=== PATIENT | female | born 1975 | race Caucasian/White ===

== ENCOUNTER 2021-02-09 10:00 | Outpatient (RCR) | payer BC, SELFPAY ==
[2017-08-24 17:27] VITALS: BMI 55.5
== END 2021-04-12 23:59 ==
LOC: IMMUN 10:00
PROVIDERS: Referring Provider Family Medicine; Visit Provider Family Medicine
DX: Z23 Encounter for immunization (principal)
CPT/HCPCS: 0001A; 0002A; 91300

== ENCOUNTER 2024-03-19 09:00 | Outpatient (RCR) | payer BC, SELFPAY ==
[2024-03-05 09:13] VITALS: BP 132/81; PULSE 73; RESP 18; TEMP 36.6
--- NOTE | 2024-03-05 12:11 | PCM.WC.HP ---
History of Present Illness Date of Service: 03/05/24 Chief Complaint: Follow-up for dehisced panniculectomy History of Wound: 49-year-old pleasant white female who recently has lost 140 pounds had a tummy tuck or panniculectomy done. She had the surgery done least over a month or 2 ago and she is well-healed except for at the very bottom she noted on February 03 the skin she did see her surgeon he said leave it alone it would come together on its own. It has not and she is just worried that it is going to get bigger. She does have another follow-up appointment with her general surgeon and march. [facility] Home Medications levothyroxine 125 mcg tablet 125 mcg PO DAILY 06/30/16 [History Last Taken 03/05/24] prenat.vits,drew,rav-rrjv-kvapb ( Vitamin tablet) 1 ea PO DAILY 06/30/16 [History Last Taken 08/23/17] Ibuprofen [Motrin] 800 mg PO TID PRN PRN Pain #60 tabs 08/28/17 [Rx Last Taken Unknown] oxycodone-acetaminophen 5 mg-325 mg tablet 1 - 2 tab PO Q6H PRN PRN Pain #40 tabs 08/28/17 [Rx Last Taken Unknown] acetaminophen 325 mg capsule (Tylenol) 325 mg PO ONCE PRN pain (scale score 1-3) 11/02/22 [History Last Taken Unknown] guaifenesin 600 mg tablet, extended release 12 hr (Mucinex) 600 mg PO BID 11/02/22 [History Last Taken Unknown] tirzepatide 5 mg/0.5 mL subcutaneous pen injector (Mounjaro) 5 mg subcut QWEEK 11/02/22 [History Last Taken Unknown] calcium phosphate,dibasic 77 mg-vitamin D3 400 unit tablet tab PO 03/05/24 [History Last Taken Unknown] iron polysacch cmplx-vit C-B cmplx 100 mg iron-250 mg/5 mL oral liquid (Protect Iron Liquid) 2 ml PO 03/05/24 [History Last Taken Unknown] Allergy/AdvReac Type Severity Reaction Status Date / Time No Known Allergies Allergy Verified 11/02/22 09:52 Social History Smoking Status: Never smoker ROS Constitutional Constitutional: Reports systems reviewed and no addt'l complaints, except as documented Eyes Eyes: Reports systems reviewed and no addt'l complaints, except as documented ENT HEENT: Reports systems reviewed and no addt'l complaints, except as documented Cardiovascular Cardiovascular: Reports systems reviewed and no addt'l complaints, except as documented Respiratory/Chest Respiratory/Chest: Reports systems reviewed and no addt'l complaints, except as documented Gastrointestinal Gastrointestinal: Reports systems reviewed and no addt'l complaints, except as documented Genitourinary Genitourinary: Reports systems reviewed and no addt'l complaints, except as documented Musculoskeletal Musculoskeletal: Reports systems reviewed and no addt'l complaints, except as documented Integumentary Integumentary: Reports wounds and other Details: Dehisced abdominoplasty or a panniculectomy right at the mons pubis in the center Neurologic Neurologic: Reports systems reviewed and no addt'l complaints, except as documented Psychiatric Psychiatric: Reports systems reviewed and no addt'l complaints, except as documented Endocrine Endocrinology: Reports systems reviewed and no addt'l complaints, except as documented Hematologic/Lymphatic Hematologic/Lymphatic: Reports systems reviewed and no addt'l complaints, except as documented Allergic/Immunologic Allergic/Immunologic: Reports systems reviewed and no addt'l complaints, except as documented Vital Signs Vital Signs Vital Signs: 03/05/24 09:13 Temperature 98 F Temperature Source Temporal Pulse Rate 73 Respiratory Rate 18 Blood Pressure 132/81 H Blood Pressure Mean 98 Blood Pressure Source Monitor Blood Pressure Position Semi-Fowlers Blood Pressure Location Left Arm Physical Exam Const oriented x3 General Appearance: cooperative Exam Limitations: no limitations HEENT normocephalic Head and Scalp: normal to inspection Face and Sinus: normal facial exam General Ear: hearing grossly impaired Eyes PERRL Neck full ROM Resp normal respiratory effort Effort and Inspection: able to speak in complete sentences Cardio regular rate and regular rhythm Palpation: normal PMI Rate: regular rate Rhythm: regular rhythm GI Auscultation: normoactive bowel sounds Palpation: soft and no hepatosplenomegaly Extremity normal to inspection Skin No no wounds Skin Narrative: Open dehisced surgical wound of the tummy tuck at the mons pubis area positive depth small almost like a puncture Neuro oriented x3 Psych Appearance: grossly normal Speech: normal speech Thought Content: normal thought content Judgement: judgement good Debridement Note Debridement Note Wound debrided: Dehisced surgical wound abdomen Type of Debridement: Excisional debridement Anesthesia Used: 5% Lidocaine Gel Depth: Down to and including healthy tissue and in the subcutaneous layer Percentage of wound debrided: 100 Instrument Used: 3mm curette Tissue Removed: Fibrin Severity: Fat Layer Exposed Amount of bleeding with debridement: Mild Bleeding Controlled with: Compression and gauze Patient tolerated procedure: Patient tolerated procedure well Post-Debridement Measurements and Additional Note: Post-Debridement Measurements/Treatment - Nurse 1 - General Ulcer Assessment Start: 03/05/24 09:13 Freq: Status: Active Protocol: IVANT Activity Type Activity Date Activity User E-sign Co-sign Detail Recorded Client Recorded Date Recorded By Document 03/05/24 09:13 Desktop 03/05/24 09:17 RB 03/05/24 09:13 - Today's Visit Information Type of service Initial Visit Arrival Mode Ambulatory Transfer Assistance None Patient Identification Verified (Name & Yes ) Patient Requires Transmission-Based No Precautions Vital Signs Temperature (97.8 F-99.1 F) 98 F Temperature Source Temporal Pulse Rate (60-100) 73 Pulse Location Monitor Respiratory Rate (12-18) 18 Respiratory rate source Observation Blood Pressure (90/60-120/80) 132/81 H Blood Pressure Mean 98 Source Monitor Position Semi-Fowlers Blood Pressure Location Left Arm History Since Last Visit- (Skip if this is Patient's initial visit) Have you changed medications since your No last visit? Any new allergies or adverse reactions No Had a fall/change in ADL's that may No increase risk of falls Signs or symptoms of abuse and/or No neglect since last visit Have you been in the hospital since your No last visit? Has dressing in place as prescribed Yes Has compression in place as prescribed No Has offloadiing in place as prescribed No Experienced any changes in pain level or No management Pain Scale: 0-10 Numeric Is Patient Pain Free? Yes Communication Assessment Preferred language Croatian Bronze Chaser Required No Able to Read Yes Able to Write Yes Communication Tools None Right Hearing Abillity Normal Left Hearing Abillity Normal Visual Assistive Devices Glasses Teaching Assessment Preferences Verbal,Written, Demonstration Barriers to Learning None Readiness To Learn Good Willingness to Engage in Self Management Med Activies Readiness to Engage in Self Management Med Activities Anxiety Level Calm Cooperation Cooperative Perception Coherent Interest in Health Problem Asks Questions Education Importance Acknowledges Need Does Patient Smoke tobacco or other No substances Smoking Status Never smoker Is Patient Diabetic No Functional Assessment Recent Decline in Ability to Perform Denies Any Declines 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[employer] Cell [employer] Battery to contact place of mormonism No Teaching: Wound Center *Welcome to the Wound Center -Person Taught Patient -Teaching Method Discussion, Demonstration -Response to teaching Verbalize understanding WC - Nurse 1 - General Ulcer Measurement Start: 03/05/24 09:13 Freq: Status: Active Protocol: Activity Type Activity Date Activity User E-sign Co-sign Detail Recorded Client Recorded Date Recorded By Document 03/05/24 09:13 RB Desktop 03/05/24 09:17 RB 03/05/24 09:13 Wound Center Nurse 1 lower abd -Combined with other wound No -Current Size (cm) - Length 0.3 -Current Size (cm) - Width 0.5 -Current Size (cm) - Depth 0.3 -Total Square Cm 0.15 -Photo Taken Yes -Tunneling No -Undermining/Tunneling No -Circular Undermining No -Exudate Amt Medium -Exudate Type Serosanguineous -Wound Margin Distinct, Outline Attached -Granulation Amt Medium (34-66%) -Granulation Quality Coleman -Slough/Fibrin Yes -Necrosis Amt Medium (34-66%) -Necrotic Tissue Type Adherent Slough -Structure Exposed N/A -Texture (Fiona-wound Skin Appearance) Assessed, Scarring -Moisture (Fiona-wound Skin Appearance) Assessed -Color (Fiona-wound Skin Appearance) Assessed -Temperature (Fiona-wound Skin No Abnormality Appearance) (Pt Warm) -Ulcer Cleansing Wound Cleanser -Foul Odor after Cleansing No -Anesthetic Used 5% Lidocaine Gel - Nurse 2 - General Ulcer CM Notes Start: 03/05/24 09:13 Freq: Status: Active Protocol: Activity Type Activity Date Activity User E-sign Co-sign Detail Recorded Client Recorded Date Recorded By Document 03/05/24 09:32 [facility] Desktop 03/05/24 09:38 BM 03/05/24 09:32 Wound Center Nurse 2 -Time 09:36 -Correct Patient Yes -Correct Side, Site, Position Yes -Correct Procedure Yes -Procedure Performed Yes -Type of Procedure Debridement -Clinical Debridement Subcutaneous -Tissue Removed Subcutaneous -Post Debridement (cm) - Length 0.2 -Post Debridement (cm) - Width 0.5 -Post Debridement (cm) - Depth 0.4 -Total Square (Post) (cm) 0.10 -Area of Debridement (cm) - Length 0.2 -Area of Debridement (cm) - Width 0.5 -Total Square (Area) (cm) 0.10 -Tunneling No -Undermining/Tunneling No -Circular Undermining No -Wound/Ulcer Outcome Not Healed -Ulcer Cleansing Rinsed/ Irrigated with Saline -Foul Odor after Cleansing No -Bioengineered Tissue No -Bleeding Controlled with Pressure -Treatment Response Procedure Tolerated Well -Debridement - Subq, 1st 20sq cm Yes Pain Scale: 0-10 Numeric Is Patient Pain Free? Yes - Nurse 3 - General Ulcer D/C NN Start: 03/05/24 09:13 Freq: Status: Active Protocol: Activity Type Activity Date Activity User E-sign Co-sign Detail Recorded Client Recorded Date Recorded By Document 03/05/24 09:45 [facility] Desktop 03/05/24 09:46 [facility] 03/05/24 09:45 Wound Care Center Nurse 3 lower abd -Ulcer Cleansing Rinsed/ Irrigated with Saline -Foul Odor after Cleansing No -Primary Dressing Applied Aquacel Extra, Mepilex Border -Aquacel Extra 1 -Mepilex Border 3 Treatment Response Procedure Tolerated Well Pain Scale: 0-10 Numeric Is Patient Pain Free? Yes - Visit Discharge Discharge Condition Stable Ambulatory Status Ambulatory Transportation Private Auto Assessment/Plan Assessment/Plan (1) Dehiscence of surgical wound: CODE(S): T81.31XA - Disruption of external operation (surgical) wound, not elsewhere classified, initial encounter QUALIFIERS: Encounter type: initial encounter Qualified Code(s): T81.31XA - Disruption of external operation (surgical) wound, not elsewhere classified, initial encounter PLAN: Wash area with antibacterial soap and water pack wound with Aquacel extra and apply a foam dressing over top Cultures were obtained will call with results Follow-up in 1 week (2) Nonhealing surgical wound: CODE(S): T81.89XA - Other complications of procedures, not elsewhere classified, initial encounter QUALIFIERS: Encounter type: initial encounter Qualified Code(s): T81.89XA - Other complications of procedures, not elsewhere classified, initial encounter (3) S/P panniculectomy: CODE(S): Z98.890 - Other specified postprocedural states
[2024-03-19 09:21] VITALS: BP 132/83; PULSE 63; RESP 18; TEMP 36.1
--- NOTE | 2024-03-19 11:22 | PN.PCM_ITS ---
History of Present Illness Date of Service: 03/19/24 Chief Complaint: Follow-up for dehisced panniculectomy History of Wound: 49-year-old pleasant white female who recently has lost 140 pounds had a tummy tuck or panniculectomy done. She had the surgery done least over a month or 2 ago and she is well-healed except for at the very bottom she noted on February 03 the skin she did see her surgeon he said leave it alone it would come together on its own. It has not and she is just worried that it is going to get bigger. She does have another follow-up appointment with her general surgeon and march. Progress of Wound: Wound is healed today patient will be discharged from the wound center Subjective Subjective Patient saw her surgeon he discontinued my treatment and started a gel patient looks pretty healed she is okay with that will be discharged Objective Data Objective Data Wound has new skin looks healed no sign of infection will be discharged from the wound center Cultures grew rare Pseudomonas did not treat wound healed Vital Signs: Vital Signs Temp Pulse Resp BP 96.9 F L 63 18 132/83 H 03/19/24 09:21 03/19/24 09:21 03/19/24 09:21 03/19/24 09:21 Lab / Micro Data Micro: Microbiology 03/05/24 09:35 Wound - Abdominal Gram Stain - Final 03/05/24 09:35 Wound - Abdominal Wound Culture - Final Pseudomonas aeruginosa Staphylococcus epidermidis 03/05/24 09:35 Wound - Abdominal Anaerobic Culture - Final No growth in 5 days. Physical Exam Const oriented x3 General Appearance: cooperative Exam Limitations: no limitations HEENT normocephalic Head and Scalp: normal to inspection Face and Sinus: normal facial exam General Ear: hearing grossly impaired Eyes PERRL Neck full ROM Resp normal respiratory effort Effort and Inspection: able to speak in complete sentences Cardio regular rate and regular rhythm Palpation: normal PMI Rate: regular rate Rhythm: regular rhythm GI Auscultation: normoactive bowel sounds Palpation: soft and no hepatosplenomegaly Extremity normal to inspection Skin No no wounds Skin Narrative: Open dehisced surgical wound of the tummy tuck at the mons pubis area positive depth small almost like a puncture Neuro oriented x3 Psych Appearance: grossly normal Speech: normal speech Thought Content: normal thought content Judgement: judgement good Debridement Note Debridement Note No debridement was completed: No debridement was completed today Post-Debridement Measurements and Additional Note: Post-Debridement Measurements/Treatment WC - Nurse 1 - General Ulcer Assessment Start: 03/05/24 09:13 Freq: Status: Active Protocol: DWAIN Activity Type Activity Date Activity User E-sign Co-sign Detail Recorded Client Recorded Date Recorded By Document 03/05/24 09:13 RB Desktop 03/05/24 09:17 RB Document 03/19/24 09:21 DL [email or web address] 03/19/24 09:27 DL 03/05/24 03/19/24 09:13 09:21 - Today's Visit Information Type of service Initial Visit 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 ) Arrival Mode Ambulatory Ambulatory Transfer Assistance None None Patient Identification Verified (Name & Yes Yes ) Patient Requires Transmission-Based No No Precautions Vital Signs Temperature (97.8 F-99.1 F) 98 F 96.9 F L Temperature Source Temporal Temporal Pulse Rate (60-100) 73 63 Pulse Location Monitor Monitor Respiratory Rate (12-18) 18 18 Respiratory rate source Observation Observation Blood Pressure (90/60-120/80) 132/81 H 132/83 H Blood Pressure Mean (mm Hg) 98 99 Source Monitor Monitor Position Semi-Fowlers Blood Pressure Location Left Arm History Since Last Visit- (Skip if this is Patient's initial visit) Have you changed medications since your No No last visit? Any new allergies or adverse reactions No No Had a fall/change in ADL's that may No No increase risk of falls Signs or symptoms of abuse and/or No No neglect since last visit Have you been in the hospital since your No No last visit? Has dressing in place as prescribed Yes Yes Has compression in place as prescribed No N/A Has offloadiing in place as prescribed No N/A Experienced any changes in pain level or No No management Pain Scale: 0-10 Numeric Is Patient Pain Free? Yes Yes Communication Assessment Preferred language [place] Citizen Hosted Services Analyst Required No Able to Read Yes Able to Write Yes Communication Tools None Right Hearing Abillity Normal Left Hearing Abillity Normal Visual Assistive Devices Glasses Teaching Assessment Preferences Verbal,Written, Demonstration Barriers to Learning None Readiness To Learn Good Willingness to Engage in Self Management Med Activies Readiness to Engage in Self Management Med Activities Anxiety Level Calm Cooperation Cooperative Perception Coherent Interest in Health Problem Asks Questions Education Importance Acknowledges Need Does Patient Smoke tobacco or other No substances Smoking Status Never smoker Is Patient Diabetic No Functional Assessment Recent Decline in Ability to Perform Denies Any Declines Culture/Christianity/Inspector Of Weights And Measures Cultural/Christianity Needs that may affect No Treatment Plan Would you allow our hospital secondary school principal to No meet you for the purpose of spiritual/ emotional support? Inspector Of Weights And Measures to contact place of denominational No Teaching: Wound Center *Welcome to the Wound Center -Person Taught Patient -Teaching Method Discussion, Demonstration -Response to teaching Verbalize understanding CELSO - Nurse 1 - General Ulcer Measurement Start: 03/05/24 09:13 Freq: Status: Active Protocol: Activity Type Activity Date Activity User E-sign Co-sign Detail Recorded Client Recorded Date Recorded By Document 03/05/24 09:13 RB Desktop 03/05/24 09:17 RB Document 03/19/24 09:21 DL [email or web address] 03/19/24 09:27 DL 03/05/24 03/19/24 09:13 09:21 Wound Center Nurse 1 lower abd -Combined with other wound No -Current Size (cm) - Length 0.3 0.2 -Current Size (cm) - Width 0.5 0.1 -Current Size (cm) - Depth 0.3 0.1 -Total Square Cm 0.15 0.02 -Photo Taken Yes -Tunneling No -Undermining/Tunneling No -Circular Undermining No -Exudate Amt Medium Small -Exudate Type Serosanguineous -Wound Margin Distinct, Distinct, Outline Outline Attached Attached -Granulation Amt Medium (34-66%) Large (67-100%) -Granulation Quality [place] -Slough/Fibrin Yes -Necrosis Amt Medium (34-66%) None Present (0 %) -Necrotic Tissue Type Adherent Slough -Structure Exposed N/A N/A -Texture (Fiona-wound Skin Appearance) Assessed, Scarring Scarring -Moisture (Fiona-wound Skin Appearance) Assessed No Abnormality -Color (Fiona-wound Skin Appearance) Assessed No Abnormality -Temperature (Fiona-wound Skin No Abnormality No Abnormality Appearance) (Pt Warm) (Pt Warm) -Ulcer Cleansing Wound Cleanser Rinsed/ Irrigated with Saline -Foul Odor after Cleansing No No -Anesthetic Used 5% Lidocaine 5% Lidocaine Gel Gel CELSO - Nurse 2 - General Ulcer CM Notes Start: 03/05/24 09:13 Freq: Status: Active Protocol: Activity Type Activity Date Activity User E-sign Co-sign Detail Recorded Client Recorded Date Recorded By Document 03/05/24 09:32 [facility] Desktop 03/05/24 09:38 [facility] Document 03/19/24 09:42 [facility] wound center 03/19/24 09:43 [facility] 03/05/24 03/19/24 09:32 09:42 Wound Center Nurse 2 lower abd -Time 09:36 -Correct Patient Yes -Correct Side, Site, Position Yes -Correct Procedure Yes -Procedure Performed Yes -Type of Procedure Debridement -Clinical Debridement Subcutaneous -Tissue Removed Subcutaneous -Post Debridement (cm) - Length 0.2 0 -Post Debridement (cm) - Width 0.5 0 -Post Debridement (cm) - Depth 0.4 0 -Total Square (Post) (cm) 0.10 0 -Area of Debridement (cm) - Length 0.2 0 -Area of Debridement (cm) - Width 0.5 0 -Total Square (Area) (cm) 0.10 0 -Tunneling No No -Undermining/Tunneling No No -Circular Undermining No No -Wound/Ulcer Outcome Not Healed Healed- Epithelialized -Ulcer Cleansing Rinsed/ Irrigated with Saline -Foul Odor after Cleansing No -Bioengineered Tissue No -Bleeding Controlled with Pressure NA -Treatment Response Procedure Tolerated Well -Debridement - Subq, 1st 20sq cm Yes Pain Scale: 0-10 Numeric Is Patient Pain Free? Yes Yes - Nurse 3 - General Ulcer D/C NN Start: 03/05/24 09:13 Freq: Status: Active Protocol: Activity Type Activity Date Activity User E-sign Co-sign Detail Recorded Client Recorded Date Recorded By Document 03/05/24 09:45 [facility] Desktop 03/05/24 09:46 [facility] 03/05/24 09:45 Wound Care Center Nurse 3 lower abd -Ulcer Cleansing Rinsed/ Irrigated with Saline -Foul Odor after Cleansing No -Primary Dressing Applied Aquacel Extra, Mepilex Border -Aquacel Extra 1 -Mepilex Border 3 Treatment Response Procedure Tolerated Well Pain Scale: 0-10 Numeric Is Patient Pain Free? Yes WC - Visit Discharge Discharge Condition Stable Ambulatory Status Ambulatory Transportation Private Auto Assessment/Plan Assessment/Plan (1) Dehiscence of surgical wound: CODE(S): T81.31XA - Disruption of external operation (surgical) wound, not elsewhere classified, initial encounter QUALIFIERS: Encounter type: initial encounter Qualified Code(s): T81.31XA - Disruption of external operation (surgical) wound, not elsewhere classified, initial encounter PLAN: Discharge from the wound center follow-up as needed (2) Nonhealing surgical wound: CODE(S): T81.89XA - Other complications of procedures, not elsewhere classified, initial encounter QUALIFIERS: Encounter type: initial encounter Qualified Code(s): T81.89XA - Other complications of procedures, not elsewhere classified, initial encounter (3) S/P panniculectomy: CODE(S): Z98.890 - Other specified postprocedural states
== END 2024-04-04 23:59 | disposition home or self-care (01) ==
LOC: WC 09:00
PROVIDERS: PCP Nurse Practitioner Family; Referring Provider Nurse Practitioner Family; Visit Provider Nurse Practitioner
DX: T81.31XA Disruption of external operation (surgical) wound, not elsewhere classified, initial encounter (principal); Y83.8 Other surgical procedures as the cause of abnormal reaction of the patient, or of later complication, without mention of misadventure at the time of the procedure; T81.89XA Other complications of procedures, not elsewhere classified, initial encounter
CPT/HCPCS: 11042; 87070; 87075; 87077; 87186; 87205; 99212; 99214; G0463